=== PATIENT | male | born 1975 | race Caucasian/White ===

== ENCOUNTER 2017-01-21 17:56 | Emergency (ER) | payer MEDICARE, MEDICAID ==
[2017-01-21 18:28] VITALS: TEMP 97.7
[2017-01-21 20:38] LABS: BASO # 0.1 K/uL (0.0-0.2); BASO % 0.8 % (0.0-2.0); EOS # 0.2 K/uL (0.0-0.7); EOS % 1.7 % (0.0-4.0); LYMPH # 1.8 K/uL (1.0-4.3); LYMPH % 17.7 % (20.0-40.0); MEAN CELL VOLUME 84.5 fL (80.0-94.0); MEAN CORPUSCULAR HEMOGLOBIN 28.2 pg (27.0-31.0); MEAN CORPUSCULAR HGB CONC 33.4 g/dL (33.0-37.0); MEAN PLATELET VOLUME 8.2 fL (7.2-11.7); MONO # 0.6 K/uL (0.0-0.8); MONO % 6.2 % (0.0-10.0); NRBC % 0.1 % (0.0-2.0); RED CELL DISTRIBUTION WIDTH 13.7 % (11.5-14.5); WHITE BLOOD COUNT 10.2 K/uL (4.8-10.8)
[2017-01-21 20:55] LABS: INR 1.1
[2017-01-21 21:37] LABS: ALB/GLOB RATIO 1.1 (1.0-2.1); ALKALINE PHOSPHATASE 75 U/L (38-126); ALT/SGPT 61 U/L (21-72); AST/SGOT 42 U/L (17-59); BILIRUBIN,TOTAL 1.1 mg/dL (0.2-1.3); BLOOD UREA NITROGEN 9 mg/dL (9-20); CALCIUM 7.8 mg/dl (8.6-10.4); CARBON DIOXIDE 24 mmol/L (22-30); CHLORIDE 97 mmol/L (98-107); GFR AFRICAN-AMERICAN > 60; GLUCOSE,RANDOM 79 mg/dL (75-110); POTASSIUM 4.5 mmol/L (3.6-5.2); SODIUM 133 mmol/L (132-148); TOTAL PROTEIN 8.2 g/dL (6.3-8.3)
--- NOTE | 2017-01-21 22:44 | C.PDOC ---
History Of Present Illness 41 year old male presents to the ED with complaints of palpitations and elevated blood pressure. Patient reports he recently moved from [place] and ran out of Carevdilol 6.25 mg one week ago. Patient has no initial appointment with PMD, whom it cannot recall the name of, schedule. Patient denies history of Jwpik-Cqrqbdesu-Lgpqx Syndrome. Patient denies chest pain, abdominal pain, fever , chills, nausea, or vomiting. Time Seen by Provider: 01/21/17 20:06 Chief Complaint (Nursing): Shortness Of Breath History Per: Patient History/Exam Limitations: no limitations Onset/Duration Of Symptoms: Hrs Current Symptoms Are (Timing): Still Present Sick Contacts (Context): None Associated Symptoms: denies: Fever, Chills, Nausea, Vomiting Recent travel outside of the [place]: No Past Medical History Reviewed: Historical Data, Nursing Documentation, Vital Signs Vital Signs: Last Vital Signs Temp 97.7 F 01/21/17 18:21 Pulse 82 01/21/17 22:45 Resp 16 01/21/17 22:45 BP 124/86 01/21/17 22:45 Pulse Ox 96 01/22/17 00:22 - Medical History PMH: Anxiety, HTN Family History: States: Unknown Family Hx - Social History Hx Alcohol Use: No Hx Substance Use: No - Immunization History Hx Tetanus Toxoid Vaccination: No Hx Influenza Vaccination: No Hx Pneumococcal Vaccination: No Review Of Systems Constitutional: Negative for: Fever, Chills Cardiovascular: Positive for: Palpitations. Negative for: Chest Pain Gastrointestinal: Negative for: Nausea, Vomiting, Abdominal Pain, Diarrhea Physical Exam - Physical Exam Appears: Non-toxic, No Acute Distress Skin: Warm, Dry, No Rash Head: Atraumatic, Normacephalic, No Tenderness Eye(s): bilateral: Normal Inspection, PERRL, EOMI Oral Mucosa: Moist Neck: Supple Chest: Symmetrical, No Deformity Cardiovascular: Rhythm Regular, No Murmur Respiratory: No Rales, No Rhonchi, No Wheezing, Other (clear to auscultation bilaterally ) Gastrointestinal/Abdominal: Soft, No Tenderness, No Distention, No Guarding, No Rebound Extremity: Normal ROM, No Tenderness, No Pedal Edema, No Calf Tenderness, Capillary Refill (<2 seconds ), No Swelling, Other (thin upper and lower extremities; peripheral muscle atrophy consistent with chronic neurological disease. 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 RML infiltrate) Progress Note: Carvedilol 6.25 mg PO, Azithromycin 500 mg PO. EKG, CXR, labs, and blood work were ordered. Reevaluation Time: 22:42 Reassessment Condition: Improved Medical Decision Making Medical Decision Making: ? small RML infiltrate vs body habitus, no leukocytosis and clear lungs, Z-pack Uncontrolled HTN, ran out of Carvedilol 1 week ago, coinciding with symptoms refilled WPW; stable, no arrhythmia. baseline EKG no h/o same. outpatient eval as per PMD Though BB's relatively contraindicated in WPW, pt already on this med chronically and assumed properly evaluated with EKG prior Observed in ED, stable rhythem. Continue same. Med modifications per PMD Disposition Doctor Will See Patient In The: Office Counseled Patient/Family Regarding: Studies Performed, Diagnosis - Disposition Referrals: [facility] [Outside] [facility] [Outside] Sherman Lee MD [Staff Provider] - Disposition: HOME/ ROUTINE Disposition Time: 22:44 Condition: GOOD Additional Instructions: Continue Carvedilol 6.25 mg twice a day: 8AM and 4pm Follow-up in our Clinic or with Dr. Lee- Medicine Doctor [employer] [facility] Make sure to never run out of your medicines. Pneumonia: Continue Azithromycin 250 mg daily for 4 more days Rest and plenty of fluids cold medicines as needed. Prescriptions: Azithromycin 1 tab PO DAILY #4 tab Carvedilol [Coreg] 6.25 mg PO BID #60 tab Instructions: Hypertension (ED), Pneumonia (ED), Nntoh-Rocaysnwr-Tcxtp Syndrome (ED) Forms: [facility] (Vietnamese) - Clinical Impression Clinical Impression: Uncontrolled hypertension, Medication refill, Cough - Scribe Statement The provider has reviewed the documentation as recorded by the Scribclarissa Jon All medical record entries made by the Gustavoibe were at my direction and personally dictated by me. I have reviewed the chart and agree that the record accurately reflects my personal performance of the history, physical exam, medical decision making, and the department course for this patient. I have also personally directed, reviewed, and agree with the discharge instructions and disposition.
[2017-01-21 22:45] VITALS: BP 124/86; PULSE 82; RESP 16
[2017-01-21 22:46] VITALS: O2SAT 96
--- NOTE | 2017-01-22 10:21 | RAD ---
PROCEDURE: CHEST RADIOGRAPH, 1 VIEW HISTORY: SOB COMPARISON: None available. FINDINGS: LUNGS: Right basilar linear atelectasis. PLEURA: Elevation of the right hemidiaphragm No pneumothorax or pleural fluid seen. CARDIOVASCULAR: Normal. OSSEOUS STRUCTURES: No significant abnormalities. VISUALIZED UPPER ABDOMEN: Normal. OTHER FINDINGS: None. IMPRESSION: Right basilar linear atelectasis.
== END 2017-01-21 23:05 | disposition home or self-care (01) ==
LOC: C.ER 17:56
DX: I10 Essential (primary) hypertension (principal); R05 Cough; Z76.0 Encounter for issue of repeat prescription